=== PATIENT | female | born 1990 | race Caucasian/White ===

== ENCOUNTER 2021-07-13 23:23 | Emergency (ER) | payer BC ==
[~2021-07-13] VITALS: Ht 177.8 cm; Wt 63.0 kg
[2021-07-14] MEDS ORDERED: KETOROLAC TROMETHAMINE 30 MG/ML VIAL IM ONE (01:15)
[2021-07-14 03:24] VITALS: BP 119/83
== END 2021-07-14 03:30 | disposition home or self-care (01) ==
LOC: EMS 23:26
DX: M76.9 Unspecified enthesopathy, lower limb, excluding foot (principal); M25.552 Pain in left hip
CPT/HCPCS: 73503; 81025; 96372; 99283; J1885